=== PATIENT | male | born 1985 | race Caucasian/White ===

== ENCOUNTER 2017-03-12 13:10 | Emergency (ER) | payer OTHER ==
[~2017-03-12] VITALS: Wt 81.8 kg
--- NOTE | 2017-03-12 14:05 | ERD ---
ER Documentation Chief Complaint Chief Complaint Laceration HPI 30-year-old male who is left-hand dominant comes in with a laceration to his left pinky that occurred on Wednesday night due to a bleed. Patient was seen by his primary doctor this afternoon and was given instructions to go to emergency department for reevaluation and suture placement. He states that the cut had reopen it causes bleeding. The pain is localized to the area of the laceration which is the volar aspect of the base of the pinky finger. He has no difficulty with movement, weakness. He denies redness, drainage. Patient saw his PCP today and was told that his Tdap is up-to-date. ROS All systems reviewed and are negative except as per history of present illness. PMhx/Soc Hx Neurological Disorder: Yes (Seizures) Hx Alcohol Use: Yes Physical Exam Vitals Vital Signs Date Time Temp Pulse Resp B/P Pulse Ox O2 Delivery O2 Flow Rate FiO2 03/12/17 13:17 98.0 73 20 130/58 99 Physical Exam General: Well-developed, well-nourished. The patient appears in no acute distress. HEENT: Head is normocephalic, atraumatic. No scleral icterus. Neck: Supple. Nontender. Lungs: Clear to auscultation. Normal air movement. Heart: Regular rate and rhythm. S1 and S2 are normal. No murmurs, gallops, or rubs. Abdomen: Nondistended. Extremities: 1.5 cm superficial linear laceration at the proximal phalanx volar aspect at the base, there is no active bleeding, no foreign body, no erythema, no warmth. Capillary refill less than 2 seconds, sensation distally intact. DIP, PIP and MCP joints have full R OM. Neurologic: Alert and oriented 3. No focal deficits. Normal speech and gait. Skin: Normal turgor. No rash or lesions. Procedures/MDM ED course: Wound care was done, irrigation the wound was done with Steri-Strip placement and a clean dressing to follow. Medical decision m[age]-year-old male comes in with a laceration that occurred approximately 5 days ago on Wednesday evening and comes in with laceration. Given that the laceration 5 days ago, patient is outside the window for suture placement. He was informed of the infection risk, which she understands and feels comfortable with this plan. Wound care was done with a Steri-Strip placement, to allow for secondary healing. There is no evidence of cellulitis, tendon rupture and I doubt fracture. He is neurovascularly intact and is stable for discharge. Departure Diagnosis: Primary Impression: Laceration Condition: Good Patient Instructions: Laceration, Hand Additional Instructions: wound check in 2 days with your primary car doctor. HIPOLITO YANG PA-C Mar 12, 2017 14:05
[2017-03-12 14:08] VITALS: BP 114/68; PULSE 80; RESP 17
== END 2017-03-12 14:09 | disposition home or self-care (01) ==
LOC: FTE 13:10
DX: S61.217A Laceration without foreign body of left little finger without damage to nail, initial encounter (principal); W26.8XXA Contact with other sharp object(s), not elsewhere classified, initial encounter; Y92.9 Unspecified place or not applicable